=== PATIENT | female | born 1960 | race American Indian/Alaskan Native ===

== ENCOUNTER 2017-08-04 12:03 | Emergency (ER) | payer OTHER ==
[2017-08-04 12:10] VITALS: BMI 30.9
--- NOTE | 2017-08-04 12:28 | ED PDOC ---
Arrival/HPI - General Chief Complaint: Chest Pain Time Seen by Provider: 08/04/17 12:04 Historian: Patient - History of Present Illness Narrative History of Present Illness (Text): 08/04/17 12:28 A 57 year old female, whose past medical history includes hypertension and herniated disc, presents to the emergency department from admissions officer office for further evaluation of chest pain. Patient reports she has had chest pain for more than 2 years, worsening pain with deep breaths. Patient also reports cough but denies any other complaints at this time. Denies smoking or drinking alcohol. Patient is ambulatory with walking cane. Guardian Family Member: Dr. Camarillo Time/Duration: Other (2 years) Symptom Onset: Sudden Symptom Course: Unchanged Activities at Onset: Rest Past Medical History - Provider Review Nursing Documentation Reviewed: Yes - Tetanus Immunization Tetanus Immunization: Unknown - Cardiac Hx Cardiac Disorders: Yes Hx Hypertension: Yes - Pulmonary Hx Respiratory Disorders: No - Neurological Hx Neurological Disorder: No - HEENT Hx HEENT Disorder: No - Renal Hx Renal Disorder: No - Endocrine/Metabolic Hx Endocrine Disorders: No - Hematological/Oncological Hx Blood Disorders: No - Integumentary Hx Dermatological Disorder: No - Musculoskeletal/Rheumatological Hx Musculoskeletal Disorders: Yes Hx Falls: Yes - Gastrointestinal Hx Gastrointestinal Disorders: Yes Other/Comment: GALL BLADDER SURGERY - Genitourinary/Gynecological Hx Genitourinary Disorders: No - Psychiatric Hx Psychophysiologic Disorder: Yes Hx Anxiety: Yes Hx Depression: Yes Hx Substance Use: No - Surgical History Hx Cholecystectomy: Yes Hx Hysterectomy: Yes Hx Orthopedic Surgery: Yes Other/Comment: Repair of broken R foot - Anesthesia Hx Anesthesia: Yes Hx Anesthesia Reactions: No - Suicidal Assessment Feels Threatened In Home Enviroment: No Family/Social History - Physician Review Nursing Documentation Reviewed: Yes Family/Social History: No Known Family HX Smoking Status: Never Smoked Hx Alcohol Use: No Hx Substance Use: No Allergies/Home Meds Allergies/Adverse Reactions: Allergies No Known Allergies Allergy (Verified 08/04/17 12:10) Home Medications: Home Meds Medication Instructions Recorded Confirmed Exforge 5 mg-160 mg 03/21/14 03/21/14 Nexium 03/21/14 03/21/14 Zantac 03/21/14 03/21/14 Exforge 5 mg-160 mg 1 tab DAILY 06/23/14 06/23/14 Xanax 1 mg PRN 06/23/14 06/23/14 Zoloft 1 tab DAILY 06/23/14 06/23/14 Review of Systems - Physician Review All systems were reviewed & negative as marked: Yes - Review of Systems Respiratory: Cough Cardiovascular: Chest Pain Physical Exam Vital Signs Reviewed: Yes Vital Signs Temp Pulse Resp BP Pulse Ox 08/04/17 15:08 80 18 147/83 98 08/04/17 13:21 98.2 F 79 18 142/71 98 Appearance: Positive for: Well-Appearing, Non-Toxic, Comfortable Pain Distress: None Mental Status: Positive for: Alert and Oriented X 3 - Systems Exam Head: Present: Atraumatic, Normocephalic Pupils: Present: PERRL Extroacular Muscles: Present: EOMI Conjunctiva: Present: Normal Mouth: Present: Moist Mucous Membranes Neck: Present: Normal Range of Motion Respiratory/Chest: Present: Clear to Auscultation, Good Air Exchange, Tender to Palpation. No: Respiratory Distress, Accessory Muscle Use Cardiovascular: Present: Regular Rate and Rhythm, Normal S1, S2. No: Murmurs Abdomen: Present: Normal Bowel Sounds. No: Tenderness, Distention, Peritoneal Signs Back: Present: Normal Inspection Upper Extremity: Present: Normal Inspection. No: Cyanosis, Edema Lower Extremity: Present: Normal Inspection. No: Edema Neurological: Present: GCS=15, CN II-XII Intact, Speech Normal Skin: Present: Warm, Dry, Normal Color. No: Rashes Psychiatric: Present: Alert, Oriented x 3, Normal Insight, Normal Concentration Medical Decision Making ED Course and Treatment: 08/04/17 12:26 Impression: A 57 year old female with chest pain and cough. Plan: -- EKG -- chest xray -- labs -- Reassess and disposition Prior Visits: Notes and results from previous visits were reviewed. Patient was last seen in the emergency department on 06/23/14 for evaluation of chest pain. Progress Notes: EKG: Ordered, reviewed, and independently interpreted the EKG. Rate : 83 BPM Rhythm : NSR Interpretation : LVH and nonspecific ST/T wave changes 08/04/17 13:[address] Camarillo, who doesn't think cardiac related, recommends regular workup to check for PE. If everything is negative, patient can be discharged home. 08/04/17 13:45 CT Chest with contrast (Pulmonary Angiogram) Creator : Dr. Samaniego, Jesse MANZANO IMPRESSION: Unremarkable CT pulmonary angiogram. No pulmonary embolus. 08/04/17 14:36 US b/l lower extremity- Negative DVT study. 08/04/17 14:36 Chest xray: No active disease, as read by me. 08/04/17 14:37 Patient's chest pain is chronic and ongoing for over a year, admissions officer didn' t feel cardiac related, sent patient to emergency department. Exam unremarkable , although D dimer was positive, further CT chest and US b/l lower extremity studies done to r/o PE and DVT were negative. Patient with atypical chest pain. I have discussed the results and plan with the patient, who expresses understanding. Patient in agreement with plan to be discharged home. Patient is stable for discharge. Patient was instructed to follow up with physician or return if symptoms worsen or new concerning symptoms arise. - Lab Interpretations Lab Results: 08/04/17 12:30 08/04/17 12:30 Lab Results 08/04/17 12:30: Sodium 142, Potassium 3.9, Chloride 103, Carbon Dioxide 29, Anion Gap 14, BUN 13, Creatinine 0.8, Est GFR ( Amer) > 60, Est GFR (Non- Af Amer) > 60, Random Glucose 101, Calcium 9.6, Total Bilirubin 0.3, AST 28, ALT 25, Alkaline Phosphatase 112, Lactate Dehydrogenase 477, Total Creatine Kinase 84, Troponin I < 0.01, Total Protein 7.0, Albumin 4.0, Globulin 3.0, Albumin/Globulin Ratio 1.3 08/04/17 12:30: PT 10.7, INR 0.93, D-Dimer, Quantitative 478 H 08/04/17 12:30: WBC 3.3 L, RBC 4.30, Hgb 12.5, Hct 38.9, MCV 90.5, MCH 29.1, MCHC 32.1, RDW 13.1, Plt Count 215, MPV 9.1, Gran % 49.3 L, Lymph % (Auto) 33.6 , Coos % (Auto) 15.0 H, Eos % (Auto) 1.8, Baso % (Auto) 0.3, Gran # 1.64, Lymph # (Auto) 1.1 L, Coos # (Auto) 0.5, Eos # (Auto) 0.1, Baso # (Auto) 0.01, ESR 27 H I have reviewed the lab results: Yes - RAD Interpretation Radiology Orders: 08/04/17 12:12 CHEST TWO VIEWS (PA/LAT) [RAD] Stat 08/04/17 12:59 ANGIO CHEST PE PROTOCOL [CT] Stat DUPLEX LOWER EXTRM VEIN BILAT [US] Stat - EKG Interpretation Interpreted by ED Physician: Yes Type: 12 lead EKG - PA / BOOTMAKER HAND / Resident Statement MD/DO has reviewed & agrees with the documentation as recorded. - Scribe Statement The provider has reviewed the documentation as recorded by the Dominic Pineda Provider Scribe Attestation: All medical record entries made by the Scribe were at my direction and personally dictated by me. I have reviewed the chart and agree that the record accurately reflects my personal performance of the history, physical exam, medical decision making, and the department course for this patient. I have also personally directed, reviewed, and agree with the discharge instructions and disposition. Disposition/Present on Arrival - Present on Arrival Any Indicators Present on Arrival: No History of DVT/PE: No History of Uncontrolled Diabetes: No Urinary Catheter: No History of Decub. Ulcer: No History Surgical Site Infection Following: None - Disposition Have Diagnosis and Disposition been Completed?: Yes Diagnosis: Chest pain, atypical Disposition: HOME/ ROUTINE Disposition Time: 14:31 Patient Plan: Discharge Condition: GOOD Discharge Instructions (ExitCare): Chest Pain (ED) Additional Instructions: Mrs Sullivan, All of your tests were normal. I spoke with Dr. Martínez. No change in your medicines. Follow up with your doctor next week. Return to us if any problems. Best- Dr. Miller Burt Referrals: Lucy Sutton MD [Primary Care Provider] - Follow up with primary Forms: [employer] ([place]azi)
[2017-08-04 12:39] LABS: BASO # 0.01 K/mm3 (0.0-2.0); BASO % 0.3 % (0.0-3.0); EOS # 0.1 (0.0-0.7); EOS % 1.8 % (1.5-5.0); GRAN # 1.64 (1.4-6.5); GRAN % 49.3 % (50.0-68.0); HEMOGLOBIN 12.5 g/dL (12.0-16.0); LYMPH # 1.1 (1.2-3.4); LYMPH % 33.6 % (22.0-35.0); MEAN CELL VOLUME 90.5 fl (80.0-105.0); MEAN CORPUSCULAR HEMOGLOBIN 29.1 pg (25.0-35.0); MEAN CORPUSCULAR HGB CONC 32.1 g/dl (31.0-37.0); MEAN PLATELET VOLUME 9.1 fl (7.0-11.0); MONO # 0.5 (0.1-0.6); RBC 4.3 10^6/uL (3.5-6.1); RED CELL DISTRIBUTION WIDTH 13.1 % (11.5-14.5); WHITE BLOOD COUNT 3.3 10^3/ul (4.5-11.0)
[2017-08-04 12:46] LABS: ALB/GLOB RATIO 1.3 (1.1-1.8); ALT/SGPT 25 U/L (7-56); AST/SGOT 28 U/L (14-36); BLOOD UREA NITROGEN 13 mg/dL (7-21); CALCIUM 9.6 mg/dL (8.4-10.5); GFR AFRICAN-AMERICAN > 60; GFR NON-AFRICAN AMERICAN > 60
[2017-08-04 12:49] LABS: INR 0.93 (0.93-1.08); PROTHROMBIN TIME 10.7 SECONDS (9.4-12.5)
[2017-08-04 12:57] LABS: TROPONIN I < 0.01 ng/mL
[2017-08-04] MEDS ORDERED: Iohexol 350 MG/100 ML VIAL ONE (13:07)
[2017-08-04 13:22] VITALS: RESP 18; TEMP 98.2; O2SAT 98
--- NOTE | 2017-08-04 13:44 | CT ---
PROCEDURE: CT Chest with contrast (Pulmonary Angiogram) HISTORY: chest pain with inspiration and positive d-dimer COMPARISON: None available. TECHNIQUE: Axial computed tomography images were obtained of the chest in the pulmonary arterial phase of enhancement. Coronal and sagittal reformatted images were created and reviewed. Intravenous contrast dose: 100 cc of Omni 350 Radiation dose: Total exam DLP = 415 mGy-cm. This CT exam was performed using one or more of the following dose reduction techniques: Automated exposure control, adjustment of the mA and/or kV according to patient size, and/or use of iterative reconstruction technique. FINDINGS: PULMONARY ARTERIES: Unremarkable. No pulmonary embolism. AORTA: No acute findings. No thoracic aortic aneurysm. LUNGS: Unremarkable. No nodule, mass or pulmonary consolidation. PLEURAL SPACES: Unremarkable. No effusion or pneuomothorax. HEART: Unremarkable. No cardiomegaly. No significant pericardial effusion. LYMPH NODES: No lymphadenopathy. BONES, CHEST WALL: Unremarkable. No fracture or destructive lesion OTHER FINDINGS: Unremarkable. IMPRESSION: Unremarkable CT pulmonary angiogram. No pulmonary embolus.
--- NOTE | 2017-08-04 14:39 | RAD ---
HISTORY: chest pain, worse with inspiration COMPARISON: No prior. TECHNIQUE: Chest PA and lateral FINDINGS: LUNGS: No active pulmonary disease. PLEURA: No significant pleural effusion identified. No pneumothorax apparent. CARDIOVASCULAR: Normal. OSSEOUS STRUCTURES: No significant abnormalities. VISUALIZED UPPER ABDOMEN: Normal. OTHER FINDINGS: None. IMPRESSION: No active disease.
[2017-08-04 15:09] VITALS: BP 147/83; PULSE 80
--- NOTE | 2017-08-04 19:50 | US ---
HISTORY: Leg pain and swelling. Evaluate for DVT PHYSICIAN(S): Diego Fontanez MD. TECHNIQUE: Duplex sonography and color-flow Doppler with graded compression were used to evaluate the deep venous systems of both lower extremities. FINDINGS: The visualized deep venous systems of both lower extremities are sonographically normal and compressible. Normal wave forms and augmentation are seen. There is no sonographic evidence for deep venous thrombosis in the visualized segments of both lower extremities. IMPRESSION: No sonographic evidence for deep venous thrombosis in the visualized segments of both lower extremities.
--- NOTE | 2017-08-04 21:01 | CARD ---
APPROVED REPORT EKG Measurement Heart [id number] <Conclusion> Normal sinus rhythm Voltage criteria for left ventricular hypertrophy Nonspecific T wave abnormality Abnormal ECG
== END 2017-08-04 15:23 | disposition home or self-care (01) ==
LOC: ED 12:03
DX: R07.89 Other chest pain (principal); I10 Essential (primary) hypertension
CPT/HCPCS: 71046; 71275; 80053; 82550; 83615; 84484; 85025; 85378; 85610; 85651; 93005; 93970; 99283; Q9967